=== PATIENT | female | born 1990 | race African-American/Black ===

== ENCOUNTER 2018-04-11 17:59 | Emergency (ER) | payer BC, OTHER ==
[2018-04-11] MEDS: LORAZEPAM 1 MG TAB PO (19:10)
[2018-04-11] MEDS: IBUPROFEN 600 MG TAB PO (19:10)
== END 2018-04-11 20:35 | disposition home or self-care (01) ==
LOC: FTE 20:35
DX: S90.31XA Contusion of right foot, initial encounter (principal); V49.49XA Driver injured in collision with other motor vehicles in traffic accident, initial encounter
CPT/HCPCS: 73630; 99283-25